=== PATIENT | male | born 1985 | race African-American/Black ===

== ENCOUNTER 2018-08-01 16:37 | Emergency (ER) | payer BC, SELFPAY ==
--- NOTE | 2018-08-01 16:52 | RAD ---
EXAM: XR Hand Rt 3 View STANDARD PROVIDED CLINICAL HISTORY: Right hand pain since hitting hand on trailer yesterday. Injury. COMPARISON: 10/31/2010. FINDINGS: There is no evidence for fracture, dislocation, or other osseous abnormality. There has been no inter vitaly change when compared to the prior exam. IMPRESSION: No acute osseous abnormality. If symptoms persist, follow-up imaging in 7-10 days is advised.
== END 2018-08-01 18:25 | disposition home or self-care (01) ==
LOC: ERS 16:37
DX: S67.21XA Crushing injury of right hand, initial encounter (principal); W23.0XXA Caught, crushed, jammed, or pinched between moving objects, initial encounter